=== PATIENT | female | born 1960 | race Caucasian/White ===

== ENCOUNTER 2016-11-29 18:21 | Emergency (ER) | payer OTHER ==
[~2016-11-29] VITALS: Ht 162.6 cm; Wt 70.8 kg
[2016-11-29 22:35] VITALS: BP 128/82
== END 2016-11-29 22:35 | disposition home or self-care (01) ==
LOC: ED 18:21
DX: G43.909 Migraine, unspecified, not intractable, without status migrainosus (principal); Z88.8 Allergy status to other drugs, medicaments and biological substances
CPT/HCPCS: J1200; J2765; J7030